=== PATIENT | male | born 1995 | race Caucasian/White ===

== ENCOUNTER 2019-04-18 14:49 | Emergency (ER) | payer OTHER, SELFPAY ==
[2019-04-18 14:52] VITALS: BMI 24.4
[2019-04-18 14:55] VITALS: BP 125/76; PULSE 105; RESP 16; TEMP 36.8; O2SAT 100
--- NOTE | 2019-04-18 14:56 | DI.RAD.S_ITS ---
PROCEDURE: XR HAND RT MIN 3V INDICATIONS: punched window pain in hand with possible glass from car window TECHNIQUE: 3 views of the right hand acquired. COMPARISON: [facility], , HAND 3V RIGHT, 08/30/2008, 18:03. FINDINGS: Bones: No fractures or dislocations. Carpal bones are normally aligned. No suspicious bony lesions. Soft tissues: No radiopaque foreign bodies. No suspicious soft tissue calcifications. IMPRESSION: 1 no. No fracture or radiopaque foreign bodies. Dictated by: Fermín Ramos M.D. on 04/18/2019 at 14:35 Approved by: Fermín Ramos M.D. on 04/18/2019 at 14:36
== END 2019-07-09 16:29 | disposition home or self-care (01) ==
DX: S69.91XA Unspecified injury of right wrist, hand and finger(s), initial encounter (principal)
CPT/HCPCS: 73130; 99282

== ENCOUNTER 2023-12-22 17:13 | Emergency (ER) | payer OTHER, SELFPAY ==
[2023-12-22] VITALS (7 sets, daily range): BP systolic 114–141; BP diastolic 76–89; PULSE 96–118; RESP 12–24; TEMP 36.9; O2SAT 94–100; BMI 24.4
--- NOTE | 2023-12-22 17:44 | ED.OVERDOSE ---
HPI - Overdose General Chief Complaint: Toxicology Problem Stated Complaint: OD/had narcan Time Seen by Provider: 12/22/23 17:24 Source: patient Mode of arrival: Wheelchair History of Present Illness HPI Narrative: 28-year-old male presents by private vehicle for accidental overdose. Patient states that he thought he was taking cocaine but subsequently became unresponsive. He received several doses of Narcan by girlfriend at home prior to arrival. On arrival patient was alert, oriented, complaining of general body pain, denies intentional overdose or thoughts of self-harm. Intent: other (Accidental) Related Data Home Medications Medication Instructions Recorded Confirmed ALBUTEROL SULFATE (Ventolin / 2 puff INH Q4H PRN ##0 08/30/08 Proventil) ipratropium bromide 17 2 puff INH BID ##0 02/28/12 mcg/actuation HFA aerosol inhaler (Atrovent HFA) Previous Rx's Medication Instructions Recorded azithromycin 250 mg tablet 0 tab PO QDAY #6 tabs 12/17/16 (Zithromax Z-Eliseo) Allergies Allergy/AdvReac Type Severity Reaction Status Date / Time No Known Drug Allergies Allergy Verified 12/22/23 18:02 Review of Systems Review of Systems Narrative: See HPI Patient History Social History Smoking Status: Current every day smoker Smoking Status: Current every day smoker Substance Use Type: marijuana, opiates and methamphetamine Exam Initial Vital Signs Initial Vital Signs: Vital Signs Pulse Rate 118 H 12/22/23 17:18 Respiratory Rate 23 12/22/23 17:18 Blood Pressure 127/89 12/22/23 17:18 Pulse Oximetry 94 12/22/23 17:18 Const: Awake, alert, no acute distress, nontoxic appearing Cardiac: Tachycardia, regular rhythm RESP: unlabored, clear bilaterally, no wheezing GI: Soft, nontender, nondistended, no rebound, no guarding MSK: Atraumatic, full range of motion, pulses equal Skin: Warm, Dry, intact, no rashes Neuro: AO x3, CN II-XII grossly intact, moves all extremities Course Orders Ordered: ED Orders 12/22/23 17:24 Urine Drug Screen, Rapid Stat 12/22/23 17:25 Urine Drug Screen, Rapid Stat Sodium Chloride (Normal Saline 0.9%) 1,000 mls @ 150 mls/hr IV CONT IBRAHIMA Last Admin: 12/22/23 17:49 Dose: 150 mls/hr Documented By: TC Naloxone HCl (Naloxone 1 Mg/Ml Syringe) 2 mg IV PRN PRN PRN Reason: Opiate Reversal Discontinued Medications Sodium Chloride (Normal Saline 0.9%) 1,000 mls @ 150 mls/hr IV CONT IBRAHIMA Naloxone HCl 2 mg/ Sodium (Chloride) 500 mls @ 62.5 mls/hr IV TITRATE IBRAHIMA; Protocol Naloxone HCl (Naloxone 4 Mg Nasal [place]) 4 mg MISC DIRECTED ONE Stop: 12/22/23 18:21 Ondansetron HCl (Ondansetron 4 Mg/2 Ml Inj) 4 mg IV NOW ONE Stop: 12/22/23 18:55 Last Admin: 12/22/23 19:00 Dose: 4 mg Vital Signs Vital signs: Vital Signs - 8 hr 12/22/23 17:18 12/22/23 17:18 12/22/23 17:30 Temperature Pulse Rate 118 H 102 H Respiratory Rate 23 18 Blood Pressure 127/89 Pulse Oximetry 94 99 Oxygen Delivery Method 12/22/23 17:30 12/22/23 17:37 12/22/23 18:00 Temperature 98.5 F Pulse Rate 114 H Respiratory Rate 24 Blood Pressure 134/87 134/87 118/77 Pulse Oximetry 98 Oxygen Delivery Method Room Air 12/22/23 18:00 12/22/23 18:30 12/22/23 18:30 Temperature Pulse Rate 96 H 98 H Respiratory Rate 15 12 Blood Pressure 121/86 Pulse Oximetry 100 Oxygen Delivery Method MDM - Overdose MDM Narrative Medical decision making narrative: Accidental opiate overdose. Responsive to Narcan administered by girlfriend at home. Currently alert, oriented. Denying complaints other than generalized body pain. Placed on registered nurse cardiac telemetry, IV fluids started, we will observe to see if additional Narcan as needed. Patient has been observed for nearly 2 hours and not required any additional Narcan. He is awake, alert, oriented. Offered resources for detox, patient declined, however [facility] number and address provided in discharge paperwork. Narcan prepack sent with patient. Naloxone at Discharge Meets criteria for naloxone at discharge?: Yes Discharge Plan Departure Patient Disposition: Home Clinical Impression: Accidental opiate poisoning Instructions: Naloxone for Opiate Overdose - [facility] Activity Restrictions/Additional Instructions: [facility] [address] [address] Prescriptions: No Action ALBUTEROL SULFATE (Ventolin / Proventil) 2 puff INH Q4H PRN Qty: 0 ipratropium bromide [Atrovent HFA] 12.9 GM HFA aerosol inhaler 2 puff INH BID Qty: 0 azithromycin [Zithromax Z-Eliseo] 250 MG tablet 0 tab PO QDAY Qty: 6 0RF Stand Alone Forms: Patient Portal/API
[2023-12-22] MEDS: SODIUM CHLORIDE 0.9% 1,000 ML 150 ML IV (17:49)
[2023-12-22] MEDS: ONDANSETRON 4 MG/2 ML INJ IV (19:00)
== END 2023-12-22 19:13 | disposition home or self-care (01) ==
PROVIDERS: Emergency Provider Emergency Medicine
DX: T40.601A Poisoning by unspecified narcotics, accidental (unintentional), initial encounter (principal)
CPT/HCPCS: 36415; 93005; 99283; 99284; J2405